=== PATIENT | female | born 1985 | race Caucasian/White ===

== ENCOUNTER 2019-11-11 17:51 | Emergency (ER) | payer OTHER ==
[2019-11-11] MEDS ORDERED: LORazepam 0.5 MG Tab PO ONE (18:50)
--- NOTE | 2019-11-11 19:33 | EDM.PDOCBH ---
ED HPI GENERAL MEDICAL PROBLEM - General Chief Complaint: Behavioral/Psych Stated Complaint: MENTAL HEALTH EVAL Time Seen by Provider: 11/11/19 18:39 Source of Information: Reports: Patient, RN Notes Reviewed, Significant Other () History Limitations: Reports: Altered Mental Status - History of Present Illness INITIAL COMMENTS - FREE TEXT/NARRATIVE: Patient is a 33-year-old female who is brought into the ER today by her for a mental health evaluation. The patient and her have a tumultuous relationship, and they are currently filing for divorce. The provides most of the history. He states that the patient was taken to senior care Sunday night, for a DUI, and that he picked her up today at around 4:30 or 5 PM, and the patient herself walked right past his car, went over to a SUV, and started having a conversation with a cage on the SUV. The notes that the patient is exhibiting flight of thoughts, she is telling her that she is going to be to another gentleman, that they had a very short engagement, and that she was going to go to the [employer] and have a wedding. She states that Yessi Hess is going to do her hair for the wedding. The patient states that she is hearing people talk from her toes, and has named them July and . The patient does have a history of psychiatric issues, but is not c urrently on medications for these, patient states that she has not been on these for some time and did stop them abruptly when she did quit taking them. The states that the patient was a daily drinker, so he is unsure if that could be part of the issue. Patient is extremely jittery, restless, and picking at her hands. Patient denies any sort of drug use. Otherwise, the patient has not been known to have any fever/chills, cough/SOB, nausea/vomiting/diarrhea. - Related Data Allergies Allergy/AdvReac Type Severity Reaction Status Date / Time No Known Allergies Allergy Verified 11/11/19 18:16 Past Medical History Psychiatric History: Reports: Addiction (alcohol), Anxiety, Depression, Hallucinations (auditory/visual) Social & Family History - Alcohol Use Alcohol Use History: Yes Days Per Week of Alcohol Use: 7 Alcohol Use Frequency: Daily ED ROS GENERAL - Review of Systems Review Of Systems: Comprehensive ROS is negative, except as noted in HPI. ED EXAM, BEHAVIORAL HEALTH - Physical Exam Exam: See Below Exam Limited By: Altered Mental Status General Appearance: Alert, WD/WN, No Apparent Distress, Anxious Respiratory/Chest: No Respiratory Distress, Lungs Clear, Normal Breath Sounds, No Accessory Muscle Use, Chest Non-Tender Cardiovascular: Normal Peripheral Pulses, Regular Rate, Rhythm, No Murmur Extremities: Normal Inspection, Normal Capillary Refill Neurological: Alert, Normal Mood/Affect, No Motor/Sensory Deficits, Oriented x 3 Psychiatric: Alert, Restless, Poor Eye Contact, Flight of Ideas, Auditory Hallucinations (pt is talking with her toes; has named them July and . States they like to goof around.), Visual Hallucinations (possible, states that she was talking to her grandmother that does not live in the area. ). No: Homicidal Thoughts, Suicidal Thoughts, Paranoid Thoughts, Threatening Behavior Skin Exam: Warm, Dry, Intact, Normal color, No rash EKG INTERPRETATION EKG Date: 11/11/19 Time: 18:48 Rhythm: NSR Rate (Beats/Min): 92 [place]: Normal P-Wave: Present QRS: Normal ST-T: Normal QT: Normal Comparison: NA - No Prior EKG EKG Interpretation Comments: No obvious ischemia or acute ST changes noted, reviewed by myself and Dr. Matthew. COURSE, BEHAVIORAL HEALTH COMP - Course Vital Signs: Last Vital Signs Temp 97.7 F 11/11/19 18:11 Pulse 106 H 11/11/19 18:11 Resp 18 11/11/19 18:11 BP 139/59 L 11/11/19 18:11 Pulse Ox 97 11/11/19 18:11 Orders, Labs, Meds: Active Orders 24 hr Category Date Time Status EKG Documentation Completion [RC] STAT Care 11/11/19 18:38 Active Peripheral IV Care [RC] . DIRECTED Care 11/11/19 20:58 Ordered CORONAVIRUS COVID-19 RAPID [MOLEC] Stat Lab 11/11/19 21:08 Received Sodium Chloride 0.9% [Normal Saline] 1,000 ml Med 11/11/19 21:08 Ordered IV ONETIME Sodium Chloride 0.9% [Saline Flush] Med 11/11/19 20:58 Ordered 10 ml FLUSH ASDIRECTED PRN Peripheral IV Insertion Adult [OM.PC] Stat Oth 11/11/19 20:58 Ordered Medication Orders Sodium Chloride (Normal Saline) 1,000 mls @ 999 mls/hr IV ONETIME ONE Stop: 11/11/19 22:08 Last Admin: 11/11/19 21:17 Dose: 999 mls/hr Documented by: Sodium Chloride (Saline Flush) 10 ml FLUSH ASDIRECTED PRN PRN Reason: Keep Vein Open Last Admin: 11/11/19 21:18 Dose: 10 ml Documented by: Laboratory Tests 11/11/19 11/11/19 11/11/19 Range/Units 18:23 18:42 18:50 WBC 7.19 (3.98-10.04) K/mm3 RBC 3.99 (3.98-5.22) M/mm3 Hgb 12.5 (11.2-15.7) gm/dl Hct 38.6 (34.1-44.9) % MCV 96.7 H (79.4-94.8) fl MCH 31.3 (25.6-32.2) pg MCHC 32.4 (32.2-35.5) g/dl RDW Std Deviation 41.4 (36.4-46.3) fL Plt Count 171 L (182-369) K/mm3 MPV 10.9 (9.4-12.3) fl Neutrophils % (Manual) 86 H (40-60) % Band Neutrophils % 0 (0-10) % Lymphocytes % (Manual) 8 L (20-40) % Atypical Lymphs % 0 % Monocytes % (Manual) 6 (2-10) % Eosinophils % (Manual) 0 L (0.7-5.8) % Basophils % (Manual) 0 L (0.1-1.2) Platelet Estimate Adequate RBC Morph Comment Normal Sodium (136-145) mEq/L Potassium (3.5-5.1) mEq/L Chloride (98-107) mEq/L Carbon Dioxide (21-32) mEq/L Anion Gap (5-15) BUN (7-18) mg/dL Creatinine (0.55-1.02) mg/dL Est Cr Clr Drug Dosing mL/min Estimated GFR (MDRD) (>60) mL/min BUN/Creatinine Ratio (14-18) Glucose (74-106) mg/dL Calcium (8.5-10.1) mg/dL Total Bilirubin (0.2-1.0) mg/dL AST (15-37) U/L ALT (14-59) U/L Alkaline Phosphatase (46-116) U/L Total Protein (6.4-8.2) g/dl Albumin (3.4-5.0) g/dl Globulin gm/dL Albumin/Globulin Ratio (1-2) TSH 3rd Generation (0.358-3.74) uIU/mL Urine HCG, Qual Negative (NEGATIVE) Salicylates (2.8-20) mg/dL Urine Opiates Screen Negative (FBOKDD=926) Ur Buprenorphine Scrn Negative (CUTOFF=10) Ur Oxycodone Screen Negative (GRC0DU=478) Urine Methadone Screen Negative (IAJGMR=537) Ur Propoxyphene Screen Negative (RQGIEB=020) Acetaminophen (10-30) ug/mL Ur Barbiturates Screen Negative (CXLNXX=557) Ur Tricyclics Screen Negative (PSPKLQ=214) Ur Phencyclidine Scrn Negative (CUTOFF=25) Ur Amphetamine Screen Negative (HVIJNT=340) U Methamphetamines Scrn Negative (DERPDD=271) U Benzodiazepines Scrn Negative (NWYNEX=329) U Cocaine Metab Screen Negative (YGOEJR=210) U Marijuana (THC) Screen Negative (CUTOFF=50) Ethyl Alcohol (0.00) gm% 11/11/19 11/11/19 Range/Units 18:50 18:50 WBC (3.98-10.04) K/mm3 RBC (3.98-5.22) M/mm3 Hgb (11.2-15.7) gm/dl Hct (34.1-44.9) % MCV (79.4-94.8) fl MCH (25.6-32.2) pg MCHC (32.2-35.5) g/dl RDW Std Deviation (36.4-46.3) fL Plt Count (182-369) K/mm3 MPV (9.4-12.3) fl Neutrophils % (Manual) (40-60) % Band Neutrophils % (0-10) % Lymphocytes % (Manual) (20-40) % Atypical Lymphs % % Monocytes % (Manual) (2-10) % Eosinophils % (Manual) (0.7-5.8) % Basophils % (Manual) (0.1-1.2) Platelet Estimate RBC Morph Comment Sodium 138 (136-145) mEq/L Potassium 3.0 L (3.5-5.1) mEq/L Chloride 99 (98-107) mEq/L Carbon Dioxide 23 (21-32) mEq/L Anion Gap 19.0 H (5-15) BUN 28 H (7-18) mg/dL Creatinine 1.2 H (0.55-1.02) mg/dL Est Cr Clr Drug Dosing 61.12 mL/min Estimated GFR (MDRD) 52 (>60) mL/min BUN/Creatinine Ratio 23.3 H (14-18) Glucose 135 H (74-106) mg/dL Calcium 9.9 (8.5-10.1) mg/dL Total Bilirubin 1.6 H (0.2-1.0) mg/dL AST 291 H (15-37) U/L ALT 198 H (14-59) U/L Alkaline Phosphatase 93 (46-116) U/L Total Protein 8.4 H (6.4-8.2) g/dl Albumin 4.4 (3.4-5.0) g/dl Globulin 4.0 gm/dL Albumin/Globulin Ratio 1.1 (1-2) TSH 3rd Generation 1.709 (0.358-3.74) uIU/mL Urine HCG, Qual (NEGATIVE) Salicylates < 0.2 L (2.8-20) mg/dL Urine Opiates Screen (MDJDNS=532) Ur Buprenorphine Scrn (CUTOFF=10) Ur Oxycodone Screen (FJG6AG=686) Urine Methadone Screen (QKDYCI=834) Ur Propoxyphene Screen (VNGSAN=385) Acetaminophen 0 L (10-30) ug/mL Ur Barbiturates Screen (CTZWWN=688) Ur Tricyclics Screen (ZWZYPQ=282) Ur Phencyclidine Scrn (CUTOFF=25) Ur Amphetamine Screen (GZJEWU=298) U Methamphetamines Scrn (RBABHD=105) U Benzodiazepines Scrn (FULCQY=156) U Cocaine Metab Screen (NGHTBW=468) U Marijuana (THC) Screen (CUTOFF=50) Ethyl Alcohol 0.00 (0.00) gm% Medications Generic Name Dose Route Start Last Admin Trade Name Freq PRN Reason Stop Dose Admin Sodium Chloride 1,000 mls @ 999 mls/hr 11/11/19 21:08 11/11/19 21:17 Normal Saline IV 11/11/19 22:08 999 mls/hr ONETIME ONE Administration Sodium Chloride 10 ml 11/11/19 20:58 11/11/19 21:18 Saline Flush FLUSH 10 ml ASDIRECTED PRN Administration Keep Vein Open Discontinued Medications Generic Name Dose Route Start Last Admin Trade Name Heather PRN Reason Stop Dose Admin Haloperidol Lactate 10 mg 11/11/19 19:57 11/11/19 20:06 Haldol IM 11/11/19 19:58 10 mg ONETIME ONE Administration Lorazepam 2 mg 11/11/19 18:50 11/11/19 19:14 Ativan PO 11/11/19 18:51 2 mg ONETIME ONE Administration Potassium Chloride 40 meq 11/11/19 19:49 11/11/19 20:05 Klor-Con M20 PO 11/11/19 19:50 40 meq ONETIME ONE Administration Discharge vs Psych Eval/Treatment:: 11/11/19 19:42 Patient presents to the ED for a mental health evaluation. Patient's is worried about having the patient around the children when she is acting the way she is. And basic labs will be obtained, urine drug screen was obtained, and was negative for any sort of substances. Patient could be suffering from alcohol delirium withdrawal. Have ordered 2 mg Ativan to help calm her nerves, and try to align a plan of treatment for her. 11/11/19 21:16 Patient's laboratory evaluation demonstrates a mildly low potassium at 3.0, she did get 40 mEq p.o. potassium for this. Metabolic panel is impressive for slight dehydration anion gap is 19, GFR is in the 50s, creatinine is a little bit elevated. Liver enzymes are all mildly elevated. Urine drug screen is negative, Tylenol, salicylates, blood alcohol, urine all negative. I did discuss the case with Dr. Muñoz at [facility] in [place], for acute alcohol detox delirium, and she does ultimately accept the patient for transfer. Patient was a little bit agitated even with the 2 mg Ativan that she received, so we did give her 10 mg IM Haldol and this seemed to help calm her down quite a bit. The accepting doctor does request that we do a 15-minute coronavirus test, and establish IV with some IV fluids. Have ordered these at this time. 11/11/19 21:20 Patient's was made aware of the patient's transfer to [place], and he seems to be okay with this at this time. I did reassure him that this would be the most appropriate place for her, if her psychiatric situation would deteriorate at any time, she would be better served in [place], rather than here for hospitalization. He did ultimately agree with me. Departure - Departure Time of Disposition: 21:18 Disposition: DC/Tfer to Acute Hospital 02 Condition: Good, Fair Clinical Impression: Alcohol withdrawal delirium, Hallucinations - Discharge Information *PRESCRIPTION DRUG MONITORING PROGRAM REVIEWED*: No *COPY OF PRESCRIPTION DRUG MONITORING REPORT IN PATIENT JOSH: No Referrals: PCP,None [Primary Care Provider] - Forms: ED Department Discharge Sepsis Event Note (ED) - Evaluation Sepsis Screening Result: No Definite Risk - Focused Exam Vital Signs: Vital Signs Temp Pulse Resp BP Pulse Ox 11/11/19 18:11 97.7 F 106 H 18 139/59 L 97 - My Orders Last 24 Hours: My Active Orders 11/11/19 18:38 EKG Documentation Completion [RC] STAT 11/11/19 20:58 Peripheral IV Care [RC] . DIRECTED Sodium Chloride 0.9% [Saline Flush] 10 ml FLUSH ASDIRECTED PRN Peripheral IV Insertion Adult [OM.PC] Stat 11/11/19 21:08 CORONAVIRUS COVID-19 RAPID [MOLEC] Stat Sodium Chloride 0.9% [Normal Saline] 1,000 ml IV ONETIME - Assessment/Plan Last 24 Hours: My Active Orders 11/11/19 18:38 EKG Documentation Completion [RC] STAT 11/11/19 20:58 Peripheral IV Care [RC] . DIRECTED Sodium Chloride 0.9% [Saline Flush] 10 ml FLUSH ASDIRECTED PRN Peripheral IV Insertion Adult [OM.PC] Stat 11/11/19 21:08 CORONAVIRUS COVID-19 RAPID [MOLEC] Stat Sodium Chloride 0.9% [Normal Saline] 1,000 ml IV ONETIME
[2019-11-11] MEDS ORDERED: Potassium Chloride 20 MEQ Tab.ER PO ONE (19:49)
[2019-11-11] MEDS ORDERED: Haloperidol Lactate 5 MG/ML SDV IM ONE (19:57)
[2019-11-11] MEDS ORDERED: Sodium Chloride 0.9% 10 ML Syringe FLUSH PRN (20:58)
[2019-11-11] MEDS ORDERED: Sodium Chloride 0.9% 1,000 ML IV ONE (21:08)
== END 2019-11-11 21:51 ==
LOC: JD.ED 17:51
DX: F10.231 Alcohol dependence with withdrawal delirium (principal); R44.0 Auditory hallucinations; R41.82 Altered mental status, unspecified; Z20.828 Contact with and (suspected) exposure to other viral communicable diseases
CPT/HCPCS: 36415; 80053; 80306; 80307; 81025; 84443; 85007; 85027; 87635; 93005; 96360; 96372; 99285; A9270; J1630; J7030; 93010; 99284; U0002